=== PATIENT | male | born 1985 | race Caucasian/White ===

== ENCOUNTER 2018-05-28 15:52 | Emergency (ER) | payer MEDICAID ==
[~2018-05-28] VITALS: Ht 177.8 cm; Wt 90.0 kg
[2018-05-28 15:59] VITALS: Ht 177.8 cm; Wt 90.0 kg
[2018-05-28] MEDS ORDERED: IBUPROFEN 600 MG TAB PO ONE (19:00)
[2018-05-28] MEDS ORDERED: KETOROLAC 15 MG INJ IM ONE (19:00)
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
[2018-05-28] MEDS ORDERED: NAPR-985 PO (20:18)
[2018-05-28] MEDS ORDERED: HYDR-4011 PO (20:18)
[2018-05-28 20:42] VITALS: BP 134/84; PULSE 94; RESP 18
== END 2018-05-28 20:43 | disposition home or self-care (01) ==
LOC: FTE 15:52
DX: S01.01XA Laceration without foreign body of scalp, initial encounter (principal); M25.461 Effusion, right knee; R42 Dizziness and giddiness; Y08.02XA Assault by strike by baseball bat, initial encounter
CPT/HCPCS: 29505; 70450; 71046; 73560; 96372; J1885; Z7502; Z7610